=== PATIENT | female | born 1960 | race Caucasian/White ===

== ENCOUNTER 2019-10-01 08:51 | Inpatient (IN) | payer OTHER ==
--- NOTE | 2019-10-01 09:36 | ER Document Report ---
ED Medical Screen (RME) - General Chief Complaint: Dizziness Stated Complaint: DIZZINESS Time Seen by Provider: 10/01/19 09:29 Mode of Arrival: Carried Information source: Patient Notes: 58-year-old female patient presenting to the emergency department chief complaint of dizziness. Patient reports the last 2 days every time she tries to stand up she says she has to hold onto items and feels like she may fall. She denies feeling like the room is spinning around her. Denies any other symptoms that include nausea, vomiting, diarrhea, fever, shortness of breath or chest pain. Exam: Face symmetric. Extraocular motions intact. Pupils are 2 mm and equally reactive. Normal speech. 5 out of 5 strength in both the distal and proximal upper and lower extremities bilaterally. Sensation is grossly intact throughout. I have greeted and performed a rapid initial assessment of this patient. A comprehensive ED assessment and evaluation of the patient, analysis of test results and completion of the medical decision making process will be conducted by additional ED providers. I have specifically instructed the patient or family members with the patient to immediately return to any nursing staff should anything change in the patient's condition or with their chief complaint. TRAVEL OUTSIDE OF THE [place] IN LAST 30 DAYS: No - Related Data Allergies/Adverse Reactions: No Known Allergies Allergy (Unverified 10/01/19 09:30) Home Medications: Zoloft. Triampherine Past Medical History - Social History Chew tobacco use (# tins/day): No Frequency of alcohol use: None Drug Abuse: None Physical Exam - Vital signs Vitals: Temp Pulse Resp BP 97.4 F 72 16 124/58 L 10/01/19 08:58 10/01/19 08:58 10/01/19 08:58 10/01/19 08:58 Course - Vital Signs Vital signs: Temp Pulse Resp BP Pulse Ox 97.4 F 72 16 124/58 L 100 10/01/19 09:01 10/01/19 09:01 10/01/19 09:01 10/01/19 09:01 10/01/19 09:01
[2019-10-01 10:33] LABS: ALBUMIN 4.4 g/dL (3.5-5.0); ALKALINE PHOSPHATASE 88 U/L (38-126); ANION GAP 14 (5-19); ASPARTATE AMINO TRANSFERASE 49 U/L (14-36); BILIRUBIN,DIRECT 0.1 mg/dL (0.0-0.4); BILIRUBIN,TOTAL 0.5 mg/dL (0.2-1.3); BLOOD UREA NITROGEN 27 mg/dL (7-20); CALCIUM 9.4 mg/dL (8.4-10.2); CARBON DIOXIDE 33 mmol/L (22-30); CHLORIDE 63 mmol/L (98-107); GLUCOSE 143 mg/dL (75-110); TOTAL PROTEIN 7.3 g/dL (6.3-8.2)
[2019-10-01 10:42] LABS: POTASSIUM 2.9 mmol/L (3.6-5.0)
[2019-10-01] MEDS ORDERED: NORMAL SALINE 1000 ML 1,000 ML IV ONE (10:50)
[2019-10-01 11:35] LABS: BLOOD UREA NITROGEN 27 mg/dL (7-20); CALCIUM 9.4 mg/dL (8.4-10.2); CARBON DIOXIDE 31 mmol/L (22-30); CHLORIDE 63 mmol/L (98-107); GLUCOSE 121 mg/dL (75-110)
[2019-10-01 11:37] LABS: ANION GAP 15 (5-19)
[2019-10-01 12:08] LABS: ABSOLUTE LYMPHOCYTES (AUTO) 1.3 10^3/uL (0.5-4.7); ABSOLUTE MONOCYTES (AUTO) 1.1 10^3/uL (0.1-1.4); ABSOLUTE NEUT (AUTO) 6.4 10^3/uL (1.7-8.2); BASOPHILS % (AUTO) 0.5 % (0-2); EOSINOPHILS % (AUTO) 0.1 % (0-6); HEMOGLOBIN 12.7 g/dL (12.0-15.5); LYMPHOCYTES % (AUTO) 15.1 % (13-45); MONOCYTES % (AUTO) 12.9 % (3-13); PLATELET COUNT 191 10^3/uL (150-450); SEGMENTED NEUTROPHILS % (AUTO) 71.4 % (42-78); TOTAL CELLS COUNTED % (AUTO) 100 %; WHITE BLOOD COUNT 8.9 10^3/uL (4.0-10.5)
[2019-10-01] MEDS ORDERED: POTASSI CL 20 MEQ/50 ML RIDER 20 MEQ/50 ML RTUPB IV ONE ×2 (12:18→23:59)
--- NOTE | 2019-10-01 12:54 | EKG REPORT ---
SEVERITY:- ABNORMAL ECG - SINUS RHYTHM NONSPECIFIC INTRAVENTRICULAR CONDUCTION DELAY : Confirmed by: Chino Streeter MD 01-Oct-2019 12:53:44
--- NOTE | 2019-10-01 14:43 | RADIOLOGY REPORT (SQ) ---
EXAM DESCRIPTION: CHEST SINGLE VIEW COMPLETED DATE/TIME: 10/01/2019 2:33 pm REASON FOR STUDY: Hyponatremia COMPARISON: None. EXAM PARAMETERS: NUMBER OF VIEWS: One view. TECHNIQUE: Single frontal radiographic view of the chest acquired. RADIATION DOSE: NA LIMITATIONS: None. FINDINGS: LUNGS AND PLEURA: No opacities, masses or pneumothorax. No pleural effusion. MEDIASTINUM AND HILAR STRUCTURES: No masses. Contour normal. HEART AND VASCULAR STRUCTURES: Heart normal in size. Normal vasculature. BONES: No acute findings. HARDWARE: None in the chest. OTHER: No other significant finding. IMPRESSION: NO ACUTE RADIOGRAPHIC FINDING IN THE CHEST. TECHNICAL DOCUMENTATION: JOB ID: [id number] [employer]- All Rights Reserved Reading location - IP/workstation name: [email or web address]
[2019-10-01] MEDS ORDERED: ACETAMINOPHEN 325 MG TABLET PO PRN (14:54)
--- NOTE | 2019-10-01 15:31 | CRITICAL CARE ADMISSION REPORT ---
HPI Date:: 10/01/19 Time:: 15:00 Reason for ICU Reason:: Severe hyponatremia HPI: This pt is a 89 yo woman who has been dizzy for the past few days. No irritability, confusion and felt the need to come to the ED where a sodium was found at 109. She says it was normal in May. She has been under extreme stress visiting her mother in our ICU who will be discharged to home hospice today. She has been taking her maxide and not eating or drinking. History obtained from:: Patient - Diagnosis/Plan (1) Hyponatremia Is this a current diagnosis for this admission?: Yes Plan: At a level opf 109 she is at risk of seizures, VT/VF and mental status changes. None of which she has. She will need 3% NS at 50 cc/hr. BMP q6H and will D/C 3%NS when her na is in the 120s. If so would like to discharge in AM to see mother just sent to home hospice. (2) Hypokalemia Is this a current diagnosis for this admission?: Yes Plan: Likely a result of maxide and not eating or drinking. (3) Dehydration Is this a current diagnosis for this admission?: Yes Plan: Stop maxide and give saline. (4) HTN (hypertension) Qualifiers: Hypertension type: essential hypertension Qualified Code(s): I10 - Essential (primary) hypertension Is this a current diagnosis for this admission?: Yes Plan: Will chago to monitor off maxide now. (5) Emotional crisis Is this a current diagnosis for this admission?: Yes Plan: She has been under extreme emotional stress with her mother's illness as I have personally witnessed over the last few days. Another reason to get her home quickly if safe. - . Plan Summary: 3% NS to get sodium into 120s and then salt tablets and referral back to primary soon. Past Medical History Cardiac Medical History: Reports: Hypertension Social/Family History - Social History Smoking Status: Never Smoker - Medication/Allergies Allergies/Adverse Reactions: No Known Allergies Allergy (Unverified 10/01/19 09:30) Review of Systems Constitutional: PRESENT: weakness, other - dizzy Eyes: ABSENT: visual disturbances Ears: ABSENT: hearing changes Cardiovascular: ABSENT: chest pain, dyspnea on exertion, edema, orthropnea, pal pitations Respiratory: ABSENT: cough, hemoptysis Gastrointestinal: ABSENT: abdominal pain, constipation, diarrhea, hematemesis, hematochezia, nausea, vomiting Genitourinary: ABSENT: dysuria, hematuria Musculoskeletal: ABSENT: joint swelling Neurological: PRESENT: weakness Psychiatric: PRESENT: anxiety - Secondary to mother's final illness. Endocrine: ABSENT: cold intolerance, heat intolerance, polydipsia, polyuria Hematologic/Lymphatic: ABSENT: easy bleeding, easy bruising Physical Exam Vital Signs: Temp Pulse Resp BP Pulse Ox 97.4 F 63 20 126/82 H 100 10/01/19 09:01 10/01/19 10:32 10/01/19 10:57 10/01/19 10:57 10/01/19 10:57 Intake & Output 09/30/19 10/01/19 10/02/19 06:59 06:59 06:59 Intake Total 1000 Balance 1000 Weight 61.5 kg Weight/Height Weight 61.5 kg Height 5 ft 1.5 in General appearance: PRESENT: no acute distress, well-developed, well-nourished Head exam: PRESENT: atraumatic, normocephalic Eye exam: PRESENT: conjunctiva pink, EOMI, PERRLA. ABSENT: scleral icterus Ear exam: PRESENT: normal external ear exam Mouth exam: PRESENT: dry mucosa Neck exam: ABSENT: carotid bruit, JVD, lymphadenopathy, thyromegaly Respiratory exam: PRESENT: clear to auscultation carol. ABSENT: rales, rhonchi, wheezes Cardiovascular exam: PRESENT: RRR. ABSENT: diastolic murmur, rubs, systolic murmur Pulses: PRESENT: normal dorsalis pedis pul Vascular exam: PRESENT: normal capillary refill GI/Abdominal exam: PRESENT: normal bowel sounds, soft. ABSENT: distended, guarding, mass, organolmegaly, rebound, tenderness Rectal exam: PRESENT: deferred Extremities exam: PRESENT: full ROM. ABSENT: calf tenderness, clubbing, pedal edema Neurological exam: PRESENT: alert, awake, oriented to person, oriented to place, oriented to time, oriented to situation, CN II-XII grossly intact. ABSENT: motor sensory deficit Skin exam: PRESENT: dry, intact, warm. ABSENT: cyanosis, rash Laboratory/Radiographs Laboratory Results: 10/01/19 11:20 10/01/19 11:05 10/01/19 10/01/19 10/01/19 09:54 09:54 11:05 WBC Cancelled RBC Cancelled Hgb Cancelled Hct Cancelled MCV Cancelled MCH Cancelled MCHC Cancelled RDW Cancelled Plt Count Cancelled Seg Neutrophils % Cancelled Sodium 109.6 L* 109.3 L* Potassium 2.9 L* 3.0 L* Chloride 63 L 63 L Carbon Dioxide 33 H 31 H Anion Gap 14 15 BUN 27 H 27 H Creatinine 1.55 H 1.60 H Est GFR ( Amer) 41 L 40 L Glucose 143 H 121 H Calcium 9.4 9.4 Magnesium 2.1 Total Bilirubin 0.5 AST 49 H Alkaline Phosphatase 88 Total Protein 7.3 Albumin 4.4 TSH 10/01/19 10/01/19 11:05 11:20 WBC 8.9 RBC Hgb 12.7 Hct Not Reportable MCV MCH MCHC RDW Plt Count 191 Seg Neutrophils % 71.4 Sodium Potassium Chloride Carbon Dioxide Anion Gap BUN Creatinine Est GFR ( Amer) Glucose Calcium Magnesium Total Bilirubin AST Alkaline Phosphatase Total Protein Albumin TSH 1.21 10/01/19 09:54 Troponin I 0.019 Impressions: Chest X-Ray 10/01/19 14:13 IMPRESSION: NO ACUTE RADIOGRAPHIC FINDING IN THE CHEST. EKG: NSR All labs, radiographs, diagnostic studies and EKGs were personally reviewed: Yes In addition, reports of radiographic and diagnostic studies were read: Yes Critical Time Critical Time (minutes): 40 -: The care of a critically ill patient is dynamic. This note represents a static moment in the admission process. Orders and treatments may be given s imultaneously and urgently, and time is not community health program representative of the treatment process. This patient requires Critical Care secondary to life threatening organ or limb dysfunction. Without Critical Care services, the patient is at risk for increased mortality and morbidity.
[2019-10-01] MEDS ORDERED: SODIUM CHLORIDE 3% 500 ML IV ONE (16:00)
[2019-10-01] MEDS: ENOXAPARIN SODIUM INJ 40 MG/0.4 ML DISP.SYRIN SUBCUT SCH (16:20)
--- NOTE | 2019-10-01 16:35 | ER Document Report ---
Entered by NATY LIRIANO SCRIBE 10/01/19 1059 Acting as scribe for:GISELLE MIRZA MD ED General - General Chief Complaint: Dizziness Stated Complaint: DIZZINESS Time Seen by Provider: 10/01/19 09:29 Mode of Arrival: Carried Information source: Patient Notes: 58 year old presents to the ED complaining of dizziness that began 2 days prior to arrival. Patient reports that it is exacerbated with standing up and has no change with moving head. She notes that when she stands up she feels unstable and has to hold onto something when she walks. She feels like the room is spinning. Patient states that she is not dizzy now. Patient also states that she has been feeling "ichy" for the past few days. Lab work that was completed before I saw the patient showed a serum sodium of 109, she does not have a history of low sodium in the past. She is on valsartan and Maxzide 75/25 1.5 tabs daily. Patient reports she had lab work done and everything was normal in May 2019. TRAVEL OUTSIDE OF THE [place] IN LAST 30 DAYS: No - Related Data Allergies/Adverse Reactions: No Known Allergies Allergy (Unverified 10/01/19 09:30) Home Medications: Zoloft. Triampherine Past Medical History - General Information source: Patient - Social History Smoking Status: Current Every Day Smoker Cigarette use (# per day): Yes - 1 pack per day Chew tobacco use (# tins/day): No Frequency of alcohol use: Drinks a glass of wine every night Drug Abuse: None Occupation: [employer] Family History: Reviewed & Not Pertinent Patient has suicidal ideation: No Patient has homicidal ideation: No - Past Medical History Cardiac Medical History: Reports: Hx Hypertension Surgical Hx: Negative Review of Systems - Review of Systems Constitutional: No symptoms reported EENT: No symptoms reported Cardiovascular: See HPI, Dizziness Respiratory: No symptoms reported Gastrointestinal: No symptoms reported Genitourinary: No symptoms reported Female Genitourinary: No symptoms reported Musculoskeletal: No symptoms reported Skin: No symptoms reported Hematologic/Lymphatic: No symptoms reported Neurological/Psychological: No symptoms reported -: Yes All other systems reviewed and negative Physical Exam - Vital signs Vitals: Temp Pulse Resp BP 97.4 F 72 16 124/58 L 10/01/19 08:58 10/01/19 08:58 10/01/19 08:58 10/01/19 08:58 - Notes Notes: General: Alert, appears well. No dizziness elicited with head movement. HEENT: Normocephalic. Atraumatic. PERRL. Extraocular movements intact. Oropharynx clear. No nystagmus. Neck: Supple. Non-tender. Respiratory: No respiratory distress. Clear and equal breath sounds bilaterally. Cardiovascular: Regular rate and rhythm. Abdominal: Normal Inspection. Non-tender. No distension. Normal Bowel Sounds. Back: No gross abnormalities. Extremities: Moves all four extremities. Upper extremities: Normal inspection. Normal ROM. Lower extremities: Normal inspection. No edema. Normal ROM. Neurological: Normal cognition. AAOx4. Normal speech. Psychological: Normal affect. Normal Mood. Skin: Warm. Dry. Normal color. Course - Vital Signs Vital signs: Temp Pulse Resp BP Pulse Ox 97.4 F 63 20 126/82 H 100 10/01/19 09:01 10/01/19 10:32 10/01/19 10:57 10/01/19 10:57 10/01/19 10:57 - Laboratory Result Diagrams: 10/01/19 11:20 10/01/19 11:05 Laboratory results interpreted by me: 10/01/19 10/01/19 09:54 11:05 Sodium 109.6 L* 109.3 L* Potassium 2.9 L* 3.0 L* Chloride 63 L 63 L Carbon Dioxide 33 H 31 H BUN 27 H 27 H Creatinine 1.55 H 1.60 H Est GFR ( Amer) 41 L 40 L Est GFR (MDRD) Non-Af 34 L 33 L Glucose 143 H 121 H AST 49 H - EKG Interpretation by Ri EKG shows normal: Sinus rhythm, [place], Intervals, QRS Complexes, ST-T Waves Rate: Normal - 63 Rhythm: NSR [place]/QRS: IVCD - Consults Dr. Cates Time consulted: 14:00 Consulted provider: will come to ER Critical Care Note - Critical Care Note Total time excluding time spent on procedures (mins): 35 Discharge - Discharge Clinical Impression: Hyponatremia, Hypokalemia, Dizziness Condition: Good Disposition: ADMITTED INPATIENT Admitting Provider: Dr. Cates Unit Admitted: ICU Scribe Attestation: 10/01/19 11:55 I personally performed the services described in the documentation, reviewed and edited the documentation which was dictated to the scribe in my presence, and it accurately records my words and actions. I personally performed the services described in the documentation, reviewed and edited the documentation which was dictated to the scribe in my presence, and it accurately records my words and actions.
[2019-10-01] MEDS: POTASSIUM CHLORIDE 10 MEQ TABLET.ER PO SCH (18:44)
[2019-10-01 22:37] LABS: BLOOD UREA NITROGEN 23 mg/dL (7-20); CALCIUM 8.5 mg/dL (8.4-10.2); CARBON DIOXIDE 27 mmol/L (22-30); CHLORIDE 82 mmol/L (98-107); GLUCOSE 106 mg/dL (75-110); POTASSIUM 3.1 mmol/L (3.6-5.0)
[2019-10-01 22:39] LABS: ANION GAP 10 (5-19)
[2019-10-01] MEDS ORDERED: 1/2 NORMAL SALINE 1,000 ML IV PRN (23:22)
[2019-10-02 00:25] LABS: APPEARANCE,URINE CLEAR; BILIRUBIN,URINE NEGATIVE (NEGATIVE); COLOR,URINE STRAW; GLUCOSE, URINE NEGATIVE (NEGATIVE); KETONES,URINE NEGATIVE (NEGATIVE); LEUKOCYTE ESTERASE,URINE NEGATIVE (NEGATIVE); NITRITE,URINE NEGATIVE (NEGATIVE); PROTEIN,URINE NEGATIVE (NEGATIVE); URINE SPECIFIC GRAVITY 1.004; UROBILINOGEN,URINE NEGATIVE mg/dL (<2.0)
[2019-10-02 04:50] LABS: ANION GAP 8 (5-19); BLOOD UREA NITROGEN 19 mg/dL (7-20); CALCIUM 8.6 mg/dL (8.4-10.2); CARBON DIOXIDE 25 mmol/L (22-30); CHLORIDE 89 mmol/L (98-107); GLUCOSE 97 mg/dL (75-110); POTASSIUM 3.3 mmol/L (3.6-5.0)
[2019-10-02] MEDS: POTASSIUM CHLORIDE 10 MEQ TABLET.ER PO SCH (09:31)
[2019-10-02] MEDS: ENOXAPARIN SODIUM INJ 40 MG/0.4 ML DISP.SYRIN SUBCUT SCH (09:31)
[2019-10-02 09:43] LABS: ANION GAP 9 (5-19); BLOOD UREA NITROGEN 20 mg/dL (7-20); CALCIUM 8.8 mg/dL (8.4-10.2); CARBON DIOXIDE 27 mmol/L (22-30); CHLORIDE 87 mmol/L (98-107); GLUCOSE 120 mg/dL (75-110)
[2019-10-02 09:51] LABS: POTASSIUM 3.5 mmol/L (3.6-5.0)
[2019-10-02] MEDS ORDERED: (PENDING PHARMACY ID) (Valsartan [Diovan] 320 MG) PO SCH (10:00)
[2019-10-02] MEDS ORDERED: ASPIRIN 81 MG TABLET, ENT COATED PO SCH (10:00)
[2019-10-02] MEDS ORDERED: POTASSIUM CHLORIDE 10 MEQ TABLET.ER PO ONE (10:00)
[2019-10-02] MEDS ORDERED: VALSARTAN 160 MG TABLET PO SCH (10:00)
[2019-10-02] MEDS ORDERED: SERTRALINE HCL 50 MG TABLET PO SCH (10:00)
[2019-10-02] MEDS ORDERED: SODIUM BICARBONATE 650 MG TABLET PO SCH (11:30)
[2019-10-02 14:11] VITALS: BP 115/68
--- NOTE | 2019-10-02 14:13 | PDOC DISCHARGE SUMMARY ---
Impression - Admit/DC Date/PCP Admission Date/Primary Care Provider: 10/01/19 16:04 LAURA RAMACHANDRAN DO Discharge Date: 10/02/19 - Discharge Diagnosis (1) Hyponatremia Is this a current diagnosis for this admission?: Yes (2) Hypokalemia Is this a current diagnosis for this admission?: Yes (3) Dehydration Is this a current diagnosis for this admission?: Yes (4) HTN (hypertension) Is this a current diagnosis for this admission?: Yes (5) Emotional crisis Is this a current diagnosis for this admission?: Yes - Assessment Summary: This is a 58 yo woman with dizziness and 'wobbliness) who went to the ED and found to have a sodium of 109 with no other symptoms. She admits to nopt eating or drinking much recently as her mother has been quite sick and was transferred to home hospice yesterday. She has still been taking Maxide and valsartan which has been stopped for now. She is surprisngly asymptomatic. - Additional Information Resuscitation Status: Full Code Discharge Diet: Regular Discharge Activity: Activity As Tolerated Referrals: LAURA RAMACHANDRAN DO [Primary Care Provider] - Follow up as needed Prescriptions: Sodium Bicarbonate [Sodium Bicarbonate 650 mg Tablet] 650 mg PO Q12 7 Days #14 tablet Home Medications: Aspirin [Adult Low Dose Aspirin EC] 81 mg PO DAILY 10/01/19 Sertraline HCl [Zoloft 50 mg Tablet] 100 mg PO DAILY 10/01/19 Sodium Bicarbonate [Sodium Bicarbonate 650 mg Tablet] 650 mg PO Q12 7 Days #14 tablet 10/02/19 History of Present Illiness History of Present Illness: This pt is a 89 yo woman who has been dizzy for the past few days. No irritab ility, confusion and felt the need to come to the ED where a sodium was found at 109. She says it was normal in May. She has been under extreme stress visiting her mother in our ICU who will be discharged to home hospice today. She has been taking her maxide and not eating or drinking. Hospital Course Hospital Course: She was started on 3% NS for several hours. Na up to 119 from 109 and changed to 1/2ns. Sodium today is 124. Patient is not dizzy today, still a bit weak but will be discharged on sodium chloride. She will not be on maxide or valsartan. Dr. Laura Segovia, her primary substance abuse counselor will call her to set up an appointment Saturday. She has been under extreme stress as her mother has just been sent home on hospice yesterday and this AM. Physical Exam Vital Signs: Temp Pulse Resp BP Pulse Ox 98.1 F 67 17 113/52 L 100 10/02/19 12:00 10/02/19 12:00 10/02/19 12:00 10/02/19 12:00 10/02/19 12:00 Intake & Output 10/01/19 10/02/19 10/03/19 06:59 06:59 06:59 Intake Total 1300 710 Output Total 650 500 Balance 650 210 Weight 64.1 kg General appearance: PRESENT: no acute distress, well-developed, well-nourished Head exam: PRESENT: atraumatic, normocephalic Eye exam: PRESENT: conjunctiva pink, EOMI, PERRLA. ABSENT: scleral icterus Ear exam: PRESENT: normal external ear exam Mouth exam: PRESENT: dry mucosa Respiratory exam: PRESENT: clear to auscultation carol. ABSENT: rales, rhonchi, wheezes Cardiovascular exam: PRESENT: RRR. ABSENT: diastolic murmur, rubs, systolic murmur Pulses: PRESENT: normal dorsalis pedis pul GI/Abdominal exam: PRESENT: normal bowel sounds, soft. ABSENT: distended, guarding, mass, organolmegaly, rebound, tenderness Rectal exam: PRESENT: deferred Extremities exam: PRESENT: full ROM. ABSENT: calf tenderness, clubbing, pedal edema Musculoskeletal exam: PRESENT: normal inspection Neurological exam: PRESENT: alert, awake, oriented to person, oriented to place, oriented to time, oriented to situation, CN II-XII grossly intact. ABSENT: motor sensory deficit Skin exam: PRESENT: dry, intact, warm. ABSENT: cyanosis, rash Results Laboratory Results: WBC 8.9 10^3/uL (4.0-10.5) 10/01/19 11:20 RBC 10^6/uL (3.72-5.28) 10/01/19 11:20 Hgb 12.7 g/dL (12.0-15.5) 10/01/19 11:20 Hct Not Reportable 10/01/19 11:20 MCV fl (80-97) 10/01/19 11:20 MCH pg (27.0-33.4) 10/01/19 11:20 MCHC g/dL (32.0-36.0) 10/01/19 11:20 RDW % (11.5-14.0) 10/01/19 11:20 Plt Count 191 10^3/uL (150-450) 10/01/19 11:20 Lymph % (Auto) 15.1 % (13-45) 10/01/19 11:20 [place] % (Auto) 12.9 % (3-13) 10/01/19 11:20 Eos % (Auto) 0.1 % (0-6) 10/01/19 11:20 Baso % (Auto) 0.5 % (0-2) 10/01/19 11:20 Absolute Neuts (auto) 6.4 10^3/uL (1.7-8.2) 10/01/19 11:20 Absolute Lymphs (auto) 1.3 10^3/uL (0.5-4.7) 10/01/19 11:20 Absolute Monos (auto) 1.1 10^3/uL (0.1-1.4) 10/01/19 11:20 Absolute Eos (auto) 0.0 10^3/uL (0.0-0.6) 10/01/19 11:20 Absolute Basos (auto) 0.0 10^3/uL (0.0-0.2) 10/01/19 11:20 Manual Hct 39.0 % (36.0-47.0) 10/01/19 11:20 Seg Neutrophils % 71.4 % (42-78) 10/01/19 11:20 Platelet Estimate Cancelled 10/01/19 09:54 Sodium 123.2 mmol/L (137-145) L 10/02/19 09:05 Potassium 3.5 mmol/L (3.6-5.0) L 10/02/19 09:05 Chloride 87 mmol/L (98-107) L 10/02/19 09:05 Carbon Dioxide 27 mmol/L (22-30) 10/02/19 09:05 Anion Gap 9 (5-19) 10/02/19 09:05 BUN 20 mg/dL (7-20) 10/02/19 09:05 Creatinine 1.00 mg/dL (0.52-1.25) 10/02/19 09:05 Est GFR ( Amer) > 60 (>60) 10/02/19 09:05 Est GFR (MDRD) Non-Af 57 (>60) L 10/02/19 09:05 Glucose 120 mg/dL (75-110) H 10/02/19 09:05 Calcium 8.8 mg/dL (8.4-10.2) 10/02/19 09:05 Phosphorus 3.0 mg/dL (2.5-4.5) 10/01/19 21:58 Magnesium 2.1 mg/dL (1.6-2.3) 10/01/19 11:05 Total Bilirubin 0.5 mg/dL (0.2-1.3) 10/01/19 09:54 Direct Bilirubin 0.1 mg/dL (0.0-0.4) 10/01/19 09:54 Neonat Total Bilirubin Not Reportable 10/01/19 09:54 Neonat Direct Bilirubin Not Reportable 10/01/19 09:54 Neonat Indirect Bili Not Reportable 10/01/19 09:54 AST 49 U/L (14-36) H 10/01/19 09:54 ALT 33 U/L (<35) 10/01/19 09:54 Alkaline Phosphatase 88 U/L (38-126) 10/01/19 09:54 Troponin I 0.019 ng/mL 10/01/19 09:54 Total Protein 7.3 g/dL (6.3-8.2) 10/01/19 09:54 Albumin 4.4 g/dL (3.5-5.0) 10/01/19 09:54 TSH 1.21 uIU/mL (0.47-4.68) 10/01/19 11:05 Random Cortisol 19.30 ug/dL (None Established) 10/01/19 11:05 Urine Color STRAW 10/02/19 00:10 Urine Appearance CLEAR 10/02/19 00:10 Urine pH 7.0 (5.0-9.0) 10/02/19 00:10 Ur Specific [place] 1.004 10/02/19 00:10 Urine Protein NEGATIVE mg/dL (NEGATIVE) 10/02/19 00:10 Urine Glucose (UA) NEGATIVE mg/dL (NEGATIVE) 10/02/19 00:10 Urine Ketones NEGATIVE mg/dL (NEGATIVE) 10/02/19 00:10 Urine Blood NEGATIVE (NEGATIVE) 10/02/19 00:10 Urine Nitrite NEGATIVE (NEGATIVE) 10/02/19 00:10 Urine Bilirubin NEGATIVE (NEGATIVE) 10/02/19 00:10 Urine Urobilinogen NEGATIVE mg/dL (<2.0) 10/02/19 00:10 Ur Leukocyte Esterase NEGATIVE (NEGATIVE) 10/02/19 00:10 Urine WBC (Auto) 6 /HPF 10/02/19 00:10 Urine RBC (Auto) 0 /HPF 10/02/19 00:10 Urine Bacteria (Auto) TRACE /HPF 10/02/19 00:10 Squamous Epi Cells Auto 1 /HPF 10/02/19 00:10 Urine Ascorbic Acid NEGATIVE (NEGATIVE) 10/02/19 00:10 Slides for Path Review Cancelled 10/01/19 09:54 10/01/19 09:54 Troponin I 0.019 Impressions: Chest X-Ray 10/01/19 14:13 IMPRESSION: NO ACUTE RADIOGRAPHIC FINDING IN THE CHEST. Plan Health Concerns: Salt tablets for one week. Dr. Ramachandran to follow up Saturday Goals: Get back to baseline health status Critical Time: 25 Level of Care: MEDICAL Stroke Is this a Stroke Patient?: No Acute Heart Failure - Is this a Heart Failure Patient?: No
== END 2019-10-02 16:32 | disposition home or self-care (01) | DRG 641 ==
LOC: ER 08:51 → EH 16:04 → ICU 17:45
PROVIDERS: ADMIT Anesthesiology; ATTEND Anesthesiology
DX: E87.1 Hypo-osmolality and hyponatremia (principal); E87.6 Hypokalemia; E86.0 Dehydration; I10 Essential (primary) hypertension; F43.20 Adjustment disorder, unspecified; F17.210 Nicotine dependence, cigarettes, uncomplicated; F41.9 Anxiety disorder, unspecified; Z79.82 Long term (current) use of aspirin
CPT/HCPCS: 36415; 71045; 80048; 80053; 81001; 82533; 83735; 84100; 84443; 84484; 85025; 93005; 93010; 96361; 96365; 96366; 99238; 99291; J1650; J3480; J3490; J7030

== ENCOUNTER 2019-10-13 10:54 | Emergency (ER) | payer OTHER ==
--- NOTE | 2019-10-13 11:35 | ER Document Report ---
ED Medical Screen (RME) - General Chief Complaint: Dizziness Stated Complaint: DIZZINESS/HEADACHE Time Seen by Provider: 10/13/19 11:33 Primary Care Provider: MIQUEL RAMACHANDRAN DO [Primary Care Provider] - Follow up as needed Mode of Arrival: Wheelchair Information source: Patient, Relative Notes: 58-year-old female presented to ED for complaint of dizziness unstable on her feet. She was just admitted to the ICU for low sodium the end of September was discharged the next day. Family states she was not her normal self but she was okay but now she is wobbling disoriented dizzy and unstable on her feet. He is alert and oriented to person and place. They went to the primary care and they sent her to the emergency room. I have greeted and performed a rapid initial assessment of this patient. A comprehensive ED assessment and evaluation of the patient, analysis of test results and completion of medical decision making process will be conducted by an additional ED providers. TRAVEL OUTSIDE OF THE [place] IN LAST 30 DAYS: No - Related Data Allergies/Adverse Reactions: No Known Allergies Allergy (Verified 10/13/19 11:27) Past Medical History - Past Medical History Cardiac Medical History: Reports: Hx Hypertension Psychiatric Medical History: Reports: Hx Depression - on zoloft Physical Exam - Vital signs Vitals: Temp Pulse Resp BP Pulse Ox 98.7 F 93 16 138/103 H 98 10/13/19 11:14 10/13/19 11:14 10/13/19 11:14 10/13/19 11:14 10/13/19 11:14 Course - Vital Signs Vital signs: Temp Pulse Resp BP Pulse Ox 98.7 F 93 16 138/103 H 98 10/13/19 11:14 10/13/19 11:14 10/13/19 11:14 10/13/19 11:14 10/13/19 11:14 Doctor's Discharge - Discharge Referrals: MIQUEL RAMACHANDRAN DO [Primary Care Provider] - Follow up as needed
[2019-10-13 12:21] LABS: ABSOLUTE LYMPHOCYTES (AUTO) 1.7 10^3/uL (0.5-4.7); ABSOLUTE MONOCYTES (AUTO) 0.4 10^3/uL (0.1-1.4); ABSOLUTE NEUT (AUTO) 5.7 10^3/uL (1.7-8.2); BASOPHILS % (AUTO) 0.2 % (0-2); EOSINOPHILS % (AUTO) 0.5 % (0-6); HEMATOCRIT 35.3 % (36.0-47.0); HEMOGLOBIN 12.9 g/dL (12.0-15.5); LYMPHOCYTES % (AUTO) 21.5 % (13-45); MEAN CORPUSCULAR HGB CONC 36.6 g/dL (32.0-36.0); MEAN CORPUSCULAR VOLUME 104 fl (80-97); PLATELET COUNT 431 10^3/uL (150-450); RED CELL DISTRIBUTION WIDTH 12.7 % (11.5-14.0); SEGMENTED NEUTROPHILS % (AUTO) 72.8 % (42-78); TOTAL CELLS COUNTED % (AUTO) 100 %; WHITE BLOOD COUNT 7.8 10^3/uL (4.0-10.5)
[2019-10-13 12:22] LABS: APPEARANCE,URINE CLEAR; BILIRUBIN,URINE NEGATIVE (NEGATIVE); COLOR,URINE YELLOW; GLUCOSE, URINE NEGATIVE (NEGATIVE); KETONES,URINE TRACE mg/dL (NEGATIVE); PROTEIN,URINE NEGATIVE (NEGATIVE); URINE SPECIFIC GRAVITY 1.005; UROBILINOGEN,URINE NEGATIVE mg/dL (<2.0)
[2019-10-13 12:39] LABS: ALBUMIN 3.8 g/dL (3.5-5.0); ALKALINE PHOSPHATASE 95 U/L (38-126); ANION GAP 8 (5-19); ASPARTATE AMINO TRANSFERASE 25 U/L (14-36); BILIRUBIN,TOTAL 0.3 mg/dL (0.2-1.3); BLOOD UREA NITROGEN 5 mg/dL (7-20); CALCIUM 9.6 mg/dL (8.4-10.2); CARBON DIOXIDE 23 mmol/L (22-30); CHLORIDE 101 mmol/L (98-107); GLUCOSE 92 mg/dL (75-110); POTASSIUM 4.4 mmol/L (3.6-5.0); TOTAL PROTEIN 6.7 g/dL (6.3-8.2)
--- NOTE | 2019-10-13 13:17 | RADIOLOGY REPORT (SQ) ---
EXAM DESCRIPTION: CHEST 2 VIEWS COMPLETED DATE/TIME: 10/13/2019 1:07 pm REASON FOR STUDY: Dizziness altered COMPARISON: None. EXAM PARAMETERS: NUMBER OF VIEWS: two views TECHNIQUE: Digital Frontal and Lateral radiographic views of the chest acquired. RADIATION DOSE: NA LIMITATIONS: none FINDINGS: LUNGS AND PLEURA: No opacities, masses or pneumothorax. No pleural effusion. MEDIASTINUM AND HILAR STRUCTURES: No masses or contour abnormalities. HEART AND VASCULAR STRUCTURES: Heart normal size. No evidence for failure. BONES: No acute findings. HARDWARE: None in the chest. OTHER: No other significant finding. IMPRESSION: NO ACUTE RADIOGRAPHIC FINDING IN THE CHEST. TECHNICAL DOCUMENTATION: JOB ID: [id number] [employer] All Rights Reserved Reading location - IP/workstation name: [email or web address]
--- NOTE | 2019-10-13 15:20 | RADIOLOGY REPORT (SQ) ---
EXAM DESCRIPTION: CT HEAD WITHOUT COMPLETED DATE/TIME: 10/13/2019 3:05 pm REASON FOR STUDY: ams COMPARISON: None. TECHNIQUE: Axial images acquired through the brain without intravenous contrast. Images reviewed wi th bone, brain and subdural windows. Additional sagittal and coronal reconstructions were generated. Images stored on PACS. All CT scanners at this facility use dose modulation, iterative reconstruction, and/or weight based d osing when appropriate to reduce radiation dose to as low as reasonably achievable (ALARA). [facility]: Dose Right [facility]: CareDose [facility]: Dose Right [facility]: Teradose 4D [facility]: [employer] ([employer]) RADIATION DOSE: CT Rad equipment meets quality standard of care and radiation dose reduction techniq ues were employed. CTDIvol: 53.2 mGy. DLP: 964 mGy-cm.mGy. LIMITATIONS: None. FINDINGS: VENTRICLES: Prominent. CEREBRUM: No masses. No hemorrhage. No midline shift. Areas of low density in the white matter mos t likely due to chronic micro-vascular ischemic change. No evidence for acute infarction. CEREBELLUM: No masses. No hemorrhage. No alteration of density. No evidence for acute infarction. EXTRAAXIAL SPACES: Age-related involutional change. No fluid collections. No masses. ORBITS AND GLOBE: No intra- or extraconal masses. Normal contour of globe without masses. CALVARIUM: No fracture. PARANASAL SINUSES: No fluid or mucosal thickening. SOFT TISSUES: No mass or hematoma. OTHER: No other significant finding. IMPRESSION: CHRONIC CHANGES OF ATROPHY AND MICROVASCULAR ISCHEMIA. NO ACUTE PROCESS. EVIDENCE OF ACUTE STROKE: NO. TECHNICAL DOCUMENTATION: JOB ID: [id number] Quality ID # [id number]: Final reports with documentation of one or more dose reduction techniques (e.g., Au tomated exposure control, adjustment of the mA and/or kV according to patient size, use of iterative reconstruction technique) 2010 [employer]- All Rights Reserved Reading location - IP/workstation name: [email or web address]
--- NOTE | 2019-10-13 15:58 | ER Document Report ---
ED Dizziness/Weakness - General Chief Complaint: Dizziness Stated Complaint: DIZZINESS/HEADACHE Time Seen by Provider: 10/13/19 11:33 Primary Care Provider: MIQUEL RAMACHANDRAN DO [Primary Care Provider] - Follow up as needed Mode of Arrival: Wheelchair Information source: Patient TRAVEL OUTSIDE OF THE [place] IN LAST 30 DAYS: No - HPI Notes: Patient is brought in by family. For several weeks she has had confusion. They state that initially she was in the ICU with hypo-natremia. This is been successfully treated but patient continues with confusion. She has been disoriented and is no longer able to work. Family states just several weeks ago patient was working and in a normal state of health. They state now she is u nable to work. She has trouble doing activities of daily living and has persistent confusion and disorientation. Patient denies any concerns. She denies any pain. No shortness of breath. Patient has had no cough cold or congestion. She did have a recent fall when her sodium was low but no other known recent trauma. No previous history of stroke or peripheral vascular disease. Patient symptoms have been constant. Nothing appears make them better or worse. They have been moderate. No known radiation of the symptoms. - Related Data Allergies/Adverse Reactions: No Known Allergies Allergy (Verified 10/13/19 11:27) Past Medical History - General Information source: Patient, Relative - Social History Smoking Status: Current Every Day Smoker Frequency of alcohol use: None Drug Abuse: None Family History: Reviewed & Not Pertinent Patient has suicidal ideation: No Patient has homicidal ideation: No - Past Medical History Cardiac Medical History: Reports: Hx Hypertension Psychiatric Medical History: Reports: Hx Depression - on zoloft Review of Systems - Review of Systems Constitutional: denies: Chills, Fever Cardiovascular: denies: Chest pain, Palpitations Respiratory: denies: Cough, Short of breath -: Yes All other systems reviewed and negative Physical Exam - Vital signs Vitals: Pulse Resp BP Pulse Ox 90 21 H 154/88 H 98 10/13/19 10:54 10/13/19 10:54 10/13/19 10:54 10/13/19 10:54 Interpretation: Normal - General General appearance: Appears well, Alert In distress: None - HEENT Head: Normocephalic, Atraumatic Eyes: Normal Pupils: PERRL - Respiratory Respiratory status: No respiratory distress Chest status: Nontender Breath sounds: Normal Chest palpation: Normal - Cardiovascular Rhythm: Regular Heart sounds: Normal auscultation Murmur: No - Abdominal Inspection: Normal Distension: No distension Bowel sounds: Normal Tenderness: Nontender Organomegaly: No organomegaly - Back Back: Normal, Nontender - Extremities General upper extremity: Normal inspection, Nontender, Normal color, Normal ROM, Normal temperature General lower extremity: Normal inspection, Nontender, Normal color, Normal ROM, Normal temperature, Normal weight bearing. No: Keri's sign - Neurological Cognition: Confused Orientation: Disoriented to time Paul Coma Scale Eye Opening: Spontaneous Poston Coma Scale Verbal: Confused Paul Coma Scale Motor: Obeys Commands Paul Coma Scale Total: 14 Speech: Normal Motor strength normal: LUE, RUE, LLE, RLE Sensory: Normal - Psychological Associated symptoms: Normal affect, Normal mood - Skin Skin Temperature: Warm Skin Moisture: Dry Skin Color: Normal Course - Re-evaluation Re-evalutation: 10/13/19 18:49 at this time pt is in MRI. dispo will depend on MRI results. pt is turned over to Dr. Smith who will follow up on MRI and determine disposition. 10/13/19 19:06 - Vital Signs Vital signs: Temp Pulse Resp BP Pulse Ox 98.7 F 75 14 115/70 98 10/13/19 11:14 10/13/19 16:54 10/13/19 18:01 10/13/19 18:01 10/13/19 18:01 - Laboratory Result Diagrams: 10/13/19 11:18 10/13/19 11:18 Laboratory results interpreted by me: 10/13/19 10/13/19 10/13/19 11:18 11:18 11:18 RBC 3.40 L Hct 35.3 L MCV 104 H MCH 38.0 H MCHC 36.6 H Sodium 131.7 L BUN 5 L Creatinine 0.49 L Urine Ketones TRACE H - Diagnostic Test Radiology reviewed: Image reviewed, Reports reviewed Discharge - Discharge Clinical Impression: Confusion Condition: Stable Disposition: OTHER Referrals: MIQUEL RAMACHANDRAN DO [Primary Care Provider] - Follow up as needed
--- NOTE | 2019-10-13 16:24 | EKG REPORT ---
SEVERITY:- ABNORMAL ECG - SINUS RHYTHM PROBABLE LEFT ATRIAL ABNORMALITY NONSPECIFIC T ABNORMALITIES, ANT-LAT LEADS : Confirmed by: Diamante Doan MD 13-Oct-2019 16:24:09
--- NOTE | 2019-10-13 20:14 | RADIOLOGY REPORT (SQ) ---
EXAM DESCRIPTION: MRI HEAD COMBO COMPLETED DATE/TIME: 10/13/2019 6:26 pm REASON FOR STUDY: confusion . Altered mental status, dizziness, garbled speech, weakness, dysarthri a and giddiness beginning 2-3 weeks ago worsening today. Hypertension. COMPARISON: None. TECHNIQUE: Multiplanar imaging includes noncontrasted T1, T2, FLAIR, diffusion with ADC map and post gadolinium contrast T1 sequences. Images stored on PACS. CONTRAST TYPE AND DOSE: 10 mL Dotarem. RENAL FUNCTION: Not indicated. ACR Type II contrast agent associated with few, if any, unconfounded cases of NSF LIMITATIONS: None. FINDINGS: ANATOMY: No anomalies. Normal vascular flow voids. Pituitary fossa normal. CSF SPACES: Normal in size and contour. No hemorrhage. CEREBRUM: Sulci and gyri normal in size and contour. There is extensive hyperintense T2 white matter disease involving the periventricular, pericallosal, deep and subcortical white matter of both cereb ral hemispheres. No abnormal enhancement on postcontrast images of these lesions. No evidence of he morrhage, mass, or extraaxial fluid collection. POSTERIOR FOSSA: There is a circumscribed hyperintense T2 signal mass, isointense on T1 in the centra l haris measuring 1.5 x 1.5 x 2 cm. This demonstrates homogeneous enhancement and high signal on diff usion weighted images with no corresponding dropout on ADC map. No significant mass effect on the po ns or adjacent basilar cistern or 4th ventricle. No hemorrhage. No edema, masses or mass effect. In ternal auditory canals, cerebello-pontine angles, mastoids normal. DIFFUSION IMAGING: Negative for acute or sub-acute infarction. ORBITS: No masses. Globes normal. PARANASAL SINUSES: No fluid levels. Mucosa normal. OTHER: No other significant finding. IMPRESSION: 1. Circumscribed mass in the central haris with relative sparing of the periphery. No associated rest ricted diffusion. Diffuse homogeneous enhancement on postcontrast images. 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 Differential includes demyelinating/dysmyelinating disease such is central pontine myelinolysis (osmotic demyelination syndrome). A large multiple scle rosis plaque also could have this appearance. Metastasis is thought less likely due to homogeneous e nhancement pattern. 2. Extensive white matter disease in the cerebral hemispheres may represent additional demyelinating/ dysmyelinating disease such as multiple sclerosis. No abnormal enhancement of these lesions. 3. No evidence of acute ischemia, intracranial hemorrhage, mass effect or herniation. EVIDENCE OF ACUTE STROKE: NO. COMMENT: Findings discussed with Dr. Smith on 10/13/2019 at 1955 hours TECHNICAL DOCUMENTATION: JOB ID: [id number]- All Rights Reserved Reading location - IP/workstation name: [email or web address]
[2019-10-13 23:36] VITALS: BP 123/94
[2019-10-14] MEDS ORDERED: ONDANSETRON HCL INJ/PF 4 MG/2 ML SDV ONE
== END 2019-10-13 23:38 | disposition short-term general hospital (02) ==
LOC: ER 10:54
DX: G37.2 Central pontine myelinolysis (principal); R41.0 Disorientation, unspecified; F17.200 Nicotine dependence, unspecified, uncomplicated; I10 Essential (primary) hypertension; Z86.39 Personal history of other endocrine, nutritional and metabolic disease
CPT/HCPCS: 36415; 70450; 70551; 70553; 71046; 80053; 81001; 83690; 84484; 85025; 93005; 93010; 99285; A9576

== ENCOUNTER → 2019-11-16 | Outpatient (CLI) | payer OTHER ==
--- NOTE | 2019-11-17 12:59 | RADIOLOGY REPORT (SQ) ---
EXAM DESCRIPTION: MRI HEAD COMBO COMPLETED DATE/TIME: 11/16/2019 3:53 pm REASON FOR STUDY: BRAIN LESION G93.9 DISORDER OF BRAIN, UNSPECIFIED COMPARISON: MRI brain 10/13/2019 CT brain 10/13/2019 TECHNIQUE: Multiplanar imaging includes noncontrasted T1, T2, FLAIR, diffusion with ADC map and post gadolinium contrast T1 sequences. Images stored on PACS. CONTRAST TYPE AND DOSE: 10 mL Dotarem. RENAL FUNCTION: Not indicated. ACR Type II contrast agent associated with few, if any, unconfounded cases of NSF LIMITATIONS: None. FINDINGS: ANATOMY: No developmental anomalies. Normal vascular flow voids. Pituitary fossa normal. CSF SPACES: Normal in size and contour. No hemorrhage. CEREBRUM: No MR evidence of acute ischemic change, acute intracranial hemorrhage, mass effect, or mid line shift. Extensive increased FLAIR/ T2 signal is seen throughout the hemispheric white matter including subcor tical and deep white matter, stable compared to 10/13/2019. POSTERIOR FOSSA: In the central haris, a 2 cm by 1.5 cm area of cystic encephalomalacia is now present in the central haris with a halo of increased FLAIR signal around its periphery from gliosis. No enh ancement post gadolinium. 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 Tumefactive MS was not plaque in the central haris is also possible. Tumor is considered unlik clint. Internal auditory canals, cerebellopontine angles, mastoids normal. No enhancing lesions. No abnormal enhancement post contrast. DIFFUSION IMAGING: Negative for acute or subacute infarction. ORBITS: No masses. Globes normal. PARANASAL SINUSES: No fluid levels. Mucosa normal. OTHER: No other significant finding. IMPRESSION: Within the central haris, focal encephalomalacia is now present with a halo of surroundin g FLAIR/T2 increased signal. 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 Tumefactive MS plaqu e could mimic this appearance. Extensive chronic white matter disease elsewhere in the cerebral hemispheres sparing the posterior fo ssa. This could either represent chronic small vessel ischemic change or demyelinating disease. EVIDENCE OF ACUTE STROKE: NO. TECHNICAL DOCUMENTATION: JOB ID: [id number] 2010 [employer]- All Rights Reserved Reading location - IP/workstation name: [email or web address]
== END ==
LOC: RAD 14:50
PROVIDERS: ATTEND Neurological Surgery
DX: G93.89 Other specified disorders of brain (principal)
CPT/HCPCS: 70553; A9576